=== PATIENT | female | born 1980 | race Caucasian/White ===

== ENCOUNTER 2017-05-03 14:43 | Emergency (ER) | payer BC ==
--- NOTE | 2017-05-03 16:20 | UC ---
Throat Pain/Nasal Madhu HPI - HPI Summary HPI Summary: 37 y/o female presents to the urgent care c/o sore throat, sinus congestion, pressure and pain for the past 3 weeks. Pain is 4/10 associated w/ +PND , and dry cough. symptoms started with the common cold. she has taking Tylenol cold and flu to alleviate symptoms w/o any improvement. Now nasal discharge is green w/ LF ear pain. KU is 3/10. Pt denies dizziness, SOB, chest pain, abdominal pain , N/V/D. - History of Current Complaint Stated Complaint: ST/SINUS Time Seen by Provider: 05/03/17 16:18 Hx Obtained From: Patient Hx Last Menstrual Period: 10/09/15 Onset/Duration: Gradual Onset, Lasting Weeks - 3 weeks, Still Present, Worse Since - 2 days Severity: Moderate Pain Intensity: 3 Pain Scale Used: 0-10 Numeric Cough: Nonproductive Associated Signs & Symptoms: Positive: Sinus Discomfort, Nasal Discharge. Negative: Fever - Epiglottits Risk Factors Epiglottis Risk Factors: Negative - Allergies/Home Medications Allergies/Adverse Reactions: Allergies Allergy/AdvReac Type Severity Reaction Status Date / Time No Known Allergies Allergy Verified 05/03/17 16:21 PMH/Surg Hx/FS Hx/Imm Hx Previously Healthy: Yes - Pt denies PMHX - Surgical History Surgical History: Yes Surgery Procedure, Year, and Place: wisdom teeth; I and D right hand; 3 D&C's; - Family History Known Family History: Positive: Cardiac Disease - father, Hypertension - mother - Social History Occupation: Employed Full-time Lives: With Family Alcohol Use: None Substance Use Type: None Smoking Status (MU): Never Smoked Tobacco Review of Systems Constitutional: Negative Skin: Negative Eyes: Negative ENT: Sore Throat, Ear Ache - LF ear pain, Nasal Discharge, Sinus Congestion, Sinus Pain/Tenderness Respiratory: Cough Cardiovascular: Negative Gastrointestinal: Negative Genitourinary: Negative Motor: Negative Neurovascular: Negative Musculoskeletal: Negative Neurological: Headache Psychological: Negative Is Patient Immunocompromised?: No All Other Systems Reviewed And Are Negative: Yes Physical Exam Triage Information Reviewed: Yes - Additional Comments Vitals: reviewed General: Well developed, well-nourished female patient with NAD. Head and face: Normocephalic and atraumatic, Positive tenderness over the frontal and maxillary sinuses.. Eyes: PERRLA, EOMI x 2. Normal conjunctiva. No eye discharge. ENT: Ears and TM with normal limits. Nose: with yellowish discharge and erythematous mucosa. Pharynx with erythema , no exudate. Neck: Supple, no JVD, no carotid bruits and no lymphadenopathy. Lungs: clear, no rales, no rhonchi, no wheezes. CVS: RRR, S1 and S2 present no murmurs or gallops appreciated. Abdomen: soft nontender with positive bowel sounds. Extremities: no edema noted. Neuro: WNL. Skin: warm and dry Throat Pain/Nasal Course/Dx - Course Course Of Treatment: 37 y/o female presents to the urgent care c/o sore throat, sinus congestion, pressure and pain for the past 3 weeks. Pain is 4/10 associated w/ +PND , and dry cough. symptoms started with the common cold. she has taking Tylenol cold and flu to alleviate symptoms w/o any improvement. Now nasal discharge is green w/ LF ear pain. KU is 3/10. Pt denies dizziness, SOB, chest pain, abdominal pain, N/V/D.Hx obtained. Pt with bacterial sinustitis on examination.Pt with 3 weeks of symptoms getting worse. Pt Rx Amoxicillin PO and flonase nasal spray. Pt's BP is elevated today advised to decrease salt in diet , monitor BP and f/u with PCP for further management. Discharge instructions explained to Pt. Advised to Return to the clinic or PCP if symptoms do not improve.Pt understood and agreed with plan of care. - Differential Dx/Diagnosis Differential Diagnosis/HQI/PQRI: Laryngitis, Pharyngitis, Sinusitis, URI Provider Diagnoses: 1- Acute bacterial sinustis. 2-Elevated BP w/o HX of HTN Discharge - Discharge Plan Condition: Stable Disposition: HOME Prescriptions: Amoxicillin/Clavulanate TAB* [Augmentin TAB 875*] 875 mg PO BID #20 tab Fluticasone NASAL SPRAY 50MCG* [Flonase NASAL SPRAY 50MCG*] 2 spray BOTH NARES DAILY #1 btl Patient Education Materials: Sinusitis (ED), Low-Sodium Diet (ED) Referrals: Nigel Guzman MD [Medical Doctor] - Rossy Boss NP [Primary Care Provider] - 1 Week Additional Instructions: 1- Please increase fluid intake and rest. take full course of antibiotic to avoid resistance 2-Use Flonase as directed to help drain fluid. Also buy saline drops to clear sinuses 3-Continue taking the Tylenol , cold and flu to alleviates sinus congestion 4-F/u with your PCP or ENT DR Guzman if symptoms do not improve for further management and treatment 5-Your BP is elevated today. please decrease salt in your diet, monitor BP and if it continues to be elevated please f/u with your PCP for further management
[2017-05-03 16:21] VITALS: BP 150/89
== END 2017-05-03 16:42 | disposition home or self-care (01) ==
LOC: UCCORT 14:43
DX: J01.90 Acute sinusitis, unspecified (principal); R03.0 Elevated blood-pressure reading, without diagnosis of hypertension
CPT/HCPCS: 99212; G0463

== ENCOUNTER 2018-05-29 16:11 | Emergency (ER) | payer BC ==
[2018-05-29 16:55] VITALS: BP 118/70
--- NOTE | 2018-05-29 17:35 | UC ---
Respiratory Complaint HPI - HPI Summary HPI Summary: Pt has had cold symptoms for about 5 days with head and nasal congestion, cough. HX of asthma. She states when she lies down at night she has a lot of coughing and chest feels tight and mildly wheezy but it's not bad when she is sitting up. Pt is approximately 35 weeks gestation with her 5th child - History of Current Complaint Chief Complaint: UCGeneralIllness Stated Complaint: UPPER RESPIRATORY Time Seen by Provider: 05/29/18 16:53 Hx Obtained From: Patient Hx Last Menstrual Period: 10/09/15 ?: Yes - Approx 35 weeks gestation Onset/Duration: Gradual Onset Timing: Constant Severity Initially: Mild Severity Currently: Mild Pain Intensity: 0 Character: Cough: Nonproductive Aggravating Factors: Other - Laying down makes the post-nasal drainage worse and the coughing worse. Alleviating Factors: Upright Position, Other - Pt requesting and Albuterol inhaler, which she has used in the past. Associated Signs And Symptoms: Positive: Wheezing, URI - Minimal wheezing when she lies down at night due to post-nasal drainage., Nasal Congestion - Risk Factors Pulmonary Embolism Risk Factors: - Denies chest pain on normal and/or deep inspiration. Cardiac Risk Factors: Negative Pseudomonas Risk Factors: Negative Tuberculosis Risk Factors: Negative - Allergies/Home Medications Allergies/Adverse Reactions: Allergies Allergy/AdvReac Type Severity Reaction Status Date / Time No Known Allergies Allergy Verified 05/29/18 16:55 Home Medications: Home Medications Aspirin EC TAB* [Ecotrin EC Low Dose 81 MG*] 81 mg PO BEDTIME 05/29/18 [History Confirmed 05/29/18] Iron Tablet 1 tab DAILY 05/29/18 [History Confirmed 05/29/18] Vitamin TAB* 1 tab PO DAILY 05/29/18 [History Confirmed 05/29/18] PMH/Surg Hx/FS Hx/Imm Hx Previously Healthy: Yes - Surgical History Surgical History: Yes Surgery Procedure, Year, and Place: wisdom teeth; I & D right hand; 3 D&C's; - Family History Known Family History: Positive: Cardiac Disease - father, Hypertension - mother - Social History Lives: With Family - Pt has 5 children the eldest 12 years old, the youngest 1 year old. Alcohol Use: None Substance Use Type: None Smoking Status (MU): Never Smoked Tobacco Review of Systems All Other Systems Reviewed And Are Negative: Yes ENT: Positive: Nasal Discharge, Sinus Congestion Respiratory: Positive: Cough - Non-productive cough. Feels like she has some wheezing when she lies down and is bothered by increased post-nasal drainage. Is Patient Immunocompromised?: No Physical Exam Triage Information Reviewed: Yes Appearance: Well-Appearing, No Pain Distress, Well-Nourished Vital Signs: Initial Vital Signs Temp 97.6 F 05/29/18 16:51 Pulse 102 05/29/18 16:51 Resp 16 05/29/18 16:51 BP 118/70 05/29/18 16:51 Pulse Ox 99 05/29/18 16:51 Vital Signs Reviewed: Yes Eye Exam: Normal ENT: Positive: Pharynx normal, Nasal congestion, Nasal drainage - Clear nasal coryza, no flaring. Negative: Sinus tenderness, Uvula midline Neck exam: Normal Neck: Positive: Supple, Nontender, No Lymphadenopathy Respiratory Exam: Normal Respiratory: Positive: Lungs clear, Normal breath sounds, No respiratory distress, No accessory muscle use Cardiovascular Exam: Normal Cardiovascular: Positive: RRR, No Murmur, Pulses Normal, Brisk Capillary Refill Musculoskeletal Exam: Normal Neurological Exam: Normal Psychological Exam: Normal Skin Exam: Normal UC Diagnostic Evaluation - Laboratory O2 Sat by Pulse Oximetry: 99 Respiratory Course/Dx - Course Course Of Treatment: Pt comfortable here. Exam and history is consistent with a URI. - Differential Dx/Diagnosis Provider Diagnosis: URI (upper respiratory infection) Discharge - Sign-Out/Discharge Documenting (check all that apply): Patient Departure All imaging exams completed and their final reports reviewed: No Studies - Discharge Plan Condition: Good Disposition: HOME Prescriptions: Albuterol HFA INHALER* [Ventolin HFA Inhaler*] 2 puff INH Q4H PRN 5 Days #1 mdi PRN Reason: Wheezing Patient Education Materials: Upper Respiratory Infection (DC) Referrals: Rossy Boss NP [Primary Care Provider] - Additional Instructions: Increase fluids, Rest as much as possible. It may help to try and sleep sitting up to lessen the post-nasal drainage. Follow up with your primary care provider in 2-3 days if no improvement. - Billing Disposition and Condition Condition: GOOD Disposition: Home - Attestation Statements Provider Attestation: I was available for consult. This patient was seen by the [facility]. The patient was not presented to, seen by, or examined by me. -Zhanna
== END 2018-05-29 17:19 | disposition home or self-care (01) ==
LOC: UCCORT 16:11
DX: J06.9 Acute upper respiratory infection, unspecified (principal); Z79.82 Long term (current) use of aspirin
CPT/HCPCS: 99212; G0463